=== PATIENT | male | born 1965 | race Hispanic/Latino ===

== ENCOUNTER 2019-09-19 | Inpatient (IN) | payer OTHER | END 2019-09-20 12:00 | disposition home or self-care (01) | DRG 247 | PROVIDERS: ADMIT Internal Medicine | PROC: 4A023N7 Measurement of Cardiac Sampling and Pressure, Left Heart, Percutaneous Approach (ICD-10-PCS; principal; 2019-09-19) | PROC: 027236Z Dilation of Coronary Artery, Three Arteries with Three Drug-eluting Intraluminal Devices, Percutaneous Approach (ICD-10-PCS; 2019-09-19) | PROC: B2111ZZ Fluoroscopy of Multiple Coronary Arteries using Low Osmolar Contrast (ICD-10-PCS; 2019-09-19) | PROC: B2151ZZ Fluoroscopy of Left Heart using Low Osmolar Contrast (ICD-10-PCS; 2019-09-19) | PROC: 4A033BC Measurement of Arterial Pressure, Coronary, Percutaneous Approach (ICD-10-PCS; 2019-09-19) ==

== ENCOUNTER 2023-11-09 07:27 | Inpatient (IN) | payer BC, OTHER ==
[~2023-11-09] VITALS: Ht 162.6 cm; Wt 91.4 kg
[~2023-11-09 07:27] MED LIST: ASPI-1005 PO; ATOR40TA69 PO; LISI10TA24 PO; PRAS10TA6 PO
[2023-11-09 07:48] LABS: BASOPHILS # (AUTO) 0.17 K/uL (0.00-0.20); BASOPHILS % (AUTO) 1.3 % (0.0-5.0); EOSINOPHILS # (AUTO) 0.37 K/uL (0.00-0.70); EOSINOPHILS % (AUTO) 2.9 % (0.0-8.0); HEMATOCRIT 45.5 % (42-54); IMMATURE GRANULOCYTE ABSOLUTE 0.66 K/uL (0-1); LYMPHOCYTES # (AUTO) 3.2 K/uL (1.0-4.8); LYMPHOCYTES % (AUTO) 25.4 % (21.0-51.0); MEAN CORPUSCULAR HEMOGLOBIN 29.6 pg (27.0-33.0); MEAN CORPUSCULAR HGB CONC 34.1 g/dL (32.0-36.0); MONOCYTES # (AUTO) 1.1 K/uL (0.1-1.0); MONOCYTES % (AUTO) 8.7 % (3.0-13.0); NEUTROPHILS # (AUTO) 7.2 K/uL (1.8-7.7); NEUTROPHILS % (AUTO) 56.5 % (40.0-77.0); PLATELET COUNT (AUTO) 227 K/uL (130-400); RED BLOOD CELL COUNT(AUTO) 5.23 MIL/uL (4.50-6.20); RED CELL DISTRIBUTION WIDTH 13.5 % (11.0-15.5); WHITE BLOOD COUNT (AUTO) 12.8 K/uL (4.8-10.8)
[2023-11-09 08:12] LABS: CREATININE 1.3 mg/dL (0.5-1.3); POTASSIUM 3.7 mmol/L (3.5-5.1)
[2023-11-09] MEDS: ASPIRIN 325MG TAB PO ONE (08:13)
[2023-11-09] MEDS: ATORVASTATIN 40 MG TABLET PO ONE (08:13)
[2023-11-09] MEDS: NITROGLYCERIN 0.4 MG SL TAB SL PRN (08:14)
[2023-11-09 08:32] LABS: B-TYPE NATRIURETIC PEPTIDE < 5 pg/mL (0-100)
[2023-11-09] MEDS ORDERED: acetaMINOPHEN 325 MG TAB PO PRN (10:30)
[2023-11-09] MEDS ORDERED: hydrALAZine 20MG/ML VIAL IV PRN (10:30)
[2023-11-09] MEDS ORDERED: ONDANSETRON 4MG INJ IVP PRN (10:30)
[2023-11-09 14:53] LABS: ADD UA MICROSCOPIC YES; APPEARANCE,URINE CLEAR (CLEAR); BILIRUBIN,URINE NEGATIVE (NEGATIVE); COLOR,URINE LIGHT-YELLOW (YELLOW); GLUCOSE, URINE (UA) NEGATIVE (NEGATIVE); KETONES,URINE NEGATIVE (NEGATIVE); LEUKOCYTE ESTERASE ,URINE NEGATIVE Leu/uL (NEGATIVE); NITRATE,URINE NEGATIVE (NEGATIVE); OCCULT BLOOD,URINE NEGATIVE (NEGATIVE); PROTEIN,URINE NEGATIVE (NEGATIVE); UROBILINOGEN,URINE 0.2 mg/dL (0.2-1.0)
[2023-11-09 14:57] LABS: MUCUS,URINE RARE LPF (None Seen); RBC,URINE 0-1 /HPF (0-1); WBC,URINE 0-1 /HPF (0-1)
[2023-11-09] MEDS: FAMOTIDINE 20MG TAB PO SCH (20:01)
[2023-11-09] MEDS: carVEDIlol 12.5 MG TABLET PO SCH (20:01)
[2023-11-09 21:20] VITALS: BP 110/78; PULSE 75; RESP 20
[2023-11-09] MEDS ORDERED: OMEP20CA12 PO (22:04)
[2023-11-09] MEDS ORDERED: ASPI-1443 PO (22:04)
[2023-11-09] MEDS ORDERED: LOSA100T59 PO (22:04)
[2023-11-09] MEDS ORDERED: SEMA0.258 SQ (22:04)
[2023-11-09] MEDS ORDERED: LACT10SO5 PO (22:04)
[2023-11-09] MEDS ORDERED: CARV12.511 PO (22:04)
[2023-11-09] MEDS ORDERED: HYDR25TA PO (22:04)
[2023-11-09] MEDS ORDERED: ATOR20TA65 PO (22:04)
[2023-11-09 23:22] VITALS: BP 115/73; PULSE 72; RESP 20
[2023-11-10] VITALS (7 sets, daily range): BP systolic 114–125; BP diastolic 73–83; PULSE 71–81; RESP 18–22; O2SAT 97
[2023-11-10] MEDS: ASPIRIN 81 MG EC TAB PO SCH (09:00)
[2023-11-10] MEDS: LoSARTan 100 MG TABLET PO SCH (09:00)
[2023-11-10 10:10] LABS: HEMATOCRIT 49.1 % (42-54); MEAN CORPUSCULAR HEMOGLOBIN 29.4 pg (27.0-33.0); MEAN CORPUSCULAR HGB CONC 33.6 g/dL (32.0-36.0); MEAN CORPUSCULAR VOLUME 87.5 fL (79-99); RED BLOOD CELL COUNT(AUTO) 5.61 MIL/uL (4.50-6.20); RED CELL DISTRIBUTION WIDTH 13.5 % (11.0-15.5); WHITE BLOOD COUNT (AUTO) 12.9 K/uL (4.8-10.8)
[2023-11-10 10:18] LABS: CREATININE 0.9 mg/dL (0.5-1.3)
[2023-11-10] MEDS: ATORVASTATIN 40 MG TABLET PO SCH (20:19)
[2023-11-11 02:58] VITALS: BP 128/82; PULSE 68; RESP 21
[2023-11-11 05:39] LABS: MEAN CORPUSCULAR HGB CONC 34.7 g/dL (32.0-36.0); MEAN CORPUSCULAR VOLUME 86.7 fL (79-99); RED BLOOD CELL COUNT(AUTO) 4.96 MIL/uL (4.50-6.20); RED CELL DISTRIBUTION WIDTH 13.2 % (11.0-15.5); WHITE BLOOD COUNT (AUTO) 11.5 K/uL (4.8-10.8)
[2023-11-11 05:47] LABS: CREATININE 0.9 mg/dL (0.5-1.3); POTASSIUM 4.7 mmol/L (3.5-5.1)
[2023-11-11 08:21] VITALS: BP 116/84; PULSE 73; RESP 20
[2023-11-11 12:00] VITALS: BP 137/78; PULSE 92; RESP 20
[2023-11-11 16:00] VITALS: BP 131/89; PULSE 72; RESP 20
[2023-11-11 20:00] VITALS: BP 129/86; PULSE 96; RESP 20; O2SAT 90; O2SAT 96
[2023-11-12] VITALS: BP 126/83; PULSE 73; RESP 18
[2023-11-12 04:00] VITALS: BP 130/80; PULSE 63; RESP 18
[2023-11-12 08:00] VITALS: BP 133/92; PULSE 69; RESP 19; O2SAT 92
[2023-11-12 09:25] VITALS: BP 133/93
[2023-11-12] MEDS: REGADENOSON 0.4 MG/5 ML PF SYG IVP SCH (10:27)
[2023-11-12] MEDS ORDERED: ATOR40TA69 PO (17:23)
[2023-11-12] MEDS ORDERED: AEC81 PO (17:23)
[2023-11-12] MEDS ORDERED: CARV12.580 PO (17:23)
[2023-11-12] MEDS ORDERED: LOSA-420 PO (17:23)
== END 2023-11-12 18:08 | disposition home or self-care (01) | DRG 303 ==
LOC: EDH 07:27 → EDHIP 09:17 → 4BH 21:07
PROVIDERS: ADMIT Hospitalist; ATTEND Hospitalist
PROC: 4A02XM4 Measurement of Cardiac Total Activity, External Approach (ICD-10-PCS; principal; 2023-11-10)
PROC: 3E033HZ Introduction of Radioactive Substance into Peripheral Vein, Percutaneous Approach (ICD-10-PCS; 2023-11-10)
DX: I25.110 Atherosclerotic heart disease of native coronary artery with unstable angina pectoris (principal); E66.9 Obesity, unspecified; I10 Essential (primary) hypertension; Z68.35 Body mass index [BMI] 35.0-35.9, adult; E78.5 Hyperlipidemia, unspecified; F17.200 Nicotine dependence, unspecified, uncomplicated; E11.9 Type 2 diabetes mellitus without complications; I25.2 Old myocardial infarction; Z79.82 Long term (current) use of aspirin; Z79.899 Other long term (current) drug therapy; Z82.49 Family history of ischemic heart disease and other diseases of the circulatory system; Z95.5 Presence of coronary angioplasty implant and graft
CPT/HCPCS: 36415; 71045; 78452; 80048; 80061; 81001; 82550; 83880; 84443; 84484; 85025; 85027; 93005; 93017; 93306; A9500; G0378; J2785; A4600